=== PATIENT | female | born 1935 | race Caucasian/White ===

== ENCOUNTER → 2016-08-23 | Outpatient (CLI) | payer MEDICARE, OTHER ==
[~2016-08-23] MED LIST: ADVIL 200MG TA200 MG PO; CALTRATE-600 W600 MG PO; DYRENIUM 50MG C50 MG; EXCEDRIN PM 5001 CAP PO; KLOR-CON M2020 MEQ PO; LEVOXYL0.125 MG PO; LIPITOR20 MG PO; MAXZIDE 50 MG-71 TAB PO; MVI; NORVASC 10MG10 MG PO; OCUVITE1 TA1 PO; PAXIL 10MG10 MG PO; STRESS FORMULA1 T16 PO; SYNTHROID PO; TRIAMTERENE AND1 TA1 PO; occuvite
== END ==
LOC: MC.RAD 09:05
DX: Z12.31 Encounter for screening mammogram for malignant neoplasm of breast (principal); Z85.3 Personal history of malignant neoplasm of breast; Z80.3 Family history of malignant neoplasm of breast

== ENCOUNTER 2016-11-10 23:34 | Inpatient (IN) | payer MEDICARE, OTHER ==
[~2016-11-10] VITALS: Ht 167.6 cm; Wt 64.8 kg
[~2016-11-10 23:34] MED LIST changes: -DYRENIUM 50MG C50 MG; -KLOR-CON M2020 MEQ PO; -LEVOXYL0.125 MG PO; -MAXZIDE 50 MG-71 TAB PO; -NORVASC 10MG10 MG PO; -OCUVITE1 TA1 PO; -STRESS FORMULA1 T16 PO
[2016-11-11 00:38] LABS: HEMATOCRIT 47.4 % (37.0-47.0); HEMOGLOBIN 16.5 g/dl (12.5-16.0); MEAN CELL VOLUME 85 fl (80.0-100.0); MEAN CORPUSCULAR HEMOGLOBIN 30 pg (27.0-31.0); MEAN CORPUSCULAR HGB CONC 35 g/dl (33.0-37.0); MEAN PLATELET VOLUME 9.6 fl (7.4-10.4); PLATELET COUNT 272 K/mm3 (130-400); RED BLOOD COUNT 5.57 M/mm3 (4.10-5.30); REDCELL DISTRIBUTION WIDTH-CV 15.5 % (11.5-14.5); WHITE BLOOD COUNT 18.4 K/mm3 (4.8-10.8)
[2016-11-11 00:48] LABS: ADD PATHOLOGY DIFF REVIEW NO
[2016-11-11 00:51] LABS: BAND 61 % (0-10); NEUTROPHILS 34 % (42.0-75.2); TOTAL CELLS COUNTED 100
[2016-11-11 00:58] LABS: ADJUSTED CALCIUM 10.1 mg/dL (8.4-10.2); ALANINE AMINOTRANSFERASE 24 U/L (9-52); ALKALINE PHOSPHATASE 99 U/L (50-136); ANION GAP 19 mmol/L (7-16); BILIRUBIN,TOTAL 1.3 mg/dL (0.0-1.0); BLOOD UREA NITROGEN 23 mg/dL (7-17); CALCIUM 10.9 mg/dL (8.4-10.2); CARBON DIOXIDE 24 mmol/L (22-30); CHLORIDE 95 mmol/L (98-107); CREATININE, serum 1.07 mg/dL (0.52-1.25); GLUCOSE 177 mg/dL (74-106); LIPASE 78 U/L (23-300); POTASSIUM 3.4 mmol/L (3.4-5.0); SODIUM 138 mmol/L (137-145); TOTAL PROTEIN 8.6 gm/dL (6.4-8.2)
[2016-11-11 01:01] LABS: C-REACTIVE PROTEIN < 0.5 mg/dL (0.0-0.9)
[2016-11-11 01:07] LABS: TROPONIN-I < 0.012 ng/mL (0.000-0.034)
[2016-11-11] MEDS ORDERED: NORVASC 10MG10 MG PO (01:27)
[2016-11-11 01:59] LABS: PH 7 (5-8); SQUAMOUS EPITHELIAL 0-2 /hpf; URINE APPEARANCE Clear; URINE BACTERIA None Seen /hpf; URINE BILIRUBIN Negative (NEGATIVE); URINE BLOOD Negative (NEGATIVE); URINE COLOR Yellow; URINE GLUCOSE Negative (NEGATIVE); URINE KETONE Negative (NEGATIVE); URINE RBC 0-2 /hpf; URINE UROBILINOGEN Negative (NEGATIVE); URINE WBC 0-2 /hpf
[2016-11-11 02:49] VITALS: BP 125/65; PULSE 88; TEMP 97.8
[2016-11-11] MEDS ORDERED: DYRENIUM 50MG C50 MG (03:09)
[2016-11-11] MEDS ORDERED: KLOR-CON M2020 MEQ PO (03:11)
[2016-11-11] MEDS ORDERED: MAXZIDE 50 MG-71 TAB PO (03:13)
[2016-11-11 05:50] VITALS: BP 127/57; PULSE 85; TEMP 99.2
[2016-11-11 06:46] LABS: HEMATOCRIT 42.7 % (37.0-47.0); MEAN CELL VOLUME 88 fl (80.0-100.0); MEAN CORPUSCULAR HEMOGLOBIN 30 pg (27.0-31.0); MEAN CORPUSCULAR HGB CONC 34 g/dl (33.0-37.0); MEAN PLATELET VOLUME 9.5 fl (7.4-10.4); PLATELET COUNT 247 K/mm3 (130-400); RED BLOOD COUNT 4.87 M/mm3 (4.10-5.30); REDCELL DISTRIBUTION WIDTH-CV 15.8 % (11.5-14.5); WHITE BLOOD COUNT 14.3 K/mm3 (4.8-10.8)
[2016-11-11 06:47] LABS: ADD PATHOLOGY DIFF REVIEW NO; HEMOGLOBIN 14.4 g/dl (12.5-16.0)
[2016-11-11 07:17] LABS: BAND 32 % (0-10); NEUTROPHILS 62 % (42.0-75.2); TOTAL CELLS COUNTED 100
[2016-11-11 07:18] LABS: TOXIC GRANULATION PRESENT
[2016-11-11 09:06] LABS: PROTHROMBIN TIME 11.1 SECONDS (9.7-12.8)
[2016-11-11 09:34] VITALS: BP 133/65; PULSE 82; TEMP 99
[2016-11-11 14:07] VITALS: BP 116/61; PULSE 75; TEMP 97.9
[2016-11-11 18:05] VITALS: BP 133/63; PULSE 78
[2016-11-11 21:20] VITALS: BP 124/59; PULSE 77; TEMP 98.4
[2016-11-12 01:09] VITALS: BP 109/55; PULSE 71; TEMP 98.3
[2016-11-12 05:09] VITALS: BP 124/62; PULSE 75; TEMP 97.7
[2016-11-12 08:00] LABS: HEMATOCRIT 38.9 % (37.0-47.0); MEAN CELL VOLUME 92 fl (80.0-100.0); MEAN CORPUSCULAR HEMOGLOBIN 29 pg (27.0-31.0); MEAN CORPUSCULAR HGB CONC 32 g/dl (33.0-37.0); MEAN PLATELET VOLUME 10.5 fl (7.4-10.4); PLATELET COUNT 220 K/mm3 (130-400); RED BLOOD COUNT 4.22 M/mm3 (4.10-5.30); WHITE BLOOD COUNT 3.7 K/mm3 (4.8-10.8)
[2016-11-12 08:02] LABS: ADJUSTED CALCIUM 9.1 mg/dL (8.4-10.2); ALBUMIN 3.1 gm/dL (3.5-5.0); BILIRUBIN,TOTAL 0.8 mg/dL (0.0-1.0); CALCIUM 8.4 mg/dL (8.4-10.2); CREATININE, serum 0.86 mg/dL (0.52-1.25); POTASSIUM 3.2 mmol/L (3.4-5.0); TOTAL PROTEIN 5.9 gm/dL (6.4-8.2)
[2016-11-12 08:19] LABS: HEMOGLOBIN 12.4 g/dl (12.5-16.0)
[2016-11-12 08:20] LABS: ADD PATHOLOGY DIFF REVIEW NO
[2016-11-12 09:26] LABS: BAND 23 % (0-10); BASOPHIL 1 % (0-2); EOSINOPHIL 2 % (0-4); METAMYELOCYTE 1 % (0-0); NEUTROPHILS 30 % (42.0-75.2); PLATELET ESTIMATE NORMAL (NORMAL); TOTAL CELLS COUNTED 100; TOXIC GRANULATION PRESENT
[2016-11-12 10:51] VITALS: BP 97/81; PULSE 80; TEMP 98
[2016-11-12 14:16] VITALS: BP 136/65; PULSE 79; TEMP 97.8
[2016-11-12 18:15] VITALS: BP 142/65; PULSE 80; TEMP 98.6
[2016-11-12 21:18] VITALS: BP 138/66; PULSE 84; TEMP 98.9
[2016-11-13 06:25] VITALS: BP 141/62; PULSE 77; TEMP 98.6
[2016-11-13 07:25] LABS: BASO % 0.4 % (0.0-2.0); EOS # 0.1 (0.0-0.7); EOS % 2.5 % (0-4.0); GRAN # 3.4 (1.4-6.5); GRAN % 65.1 % (42.2-75.2); HEMATOCRIT 37.5 % (37.0-47.0); HEMOGLOBIN 12.5 g/dl (12.5-16.0); LYMPH % 19.6 % (20.0-51.0); MEAN CELL VOLUME 89 fl (80.0-100.0); MEAN CORPUSCULAR HEMOGLOBIN 30 pg (27.0-31.0); MEAN CORPUSCULAR HGB CONC 33 g/dl (33.0-37.0); MEAN PLATELET VOLUME 10.6 fl (7.4-10.4); MONO # 0.6 (0.1-0.6); MONO % 12.2 % (1.7-9.3); PLATELET COUNT 203 K/mm3 (130-400); RED BLOOD COUNT 4.21 M/mm3 (4.10-5.30); REDCELL DISTRIBUTION WIDTH-CV 15.3 % (11.5-14.5); WHITE BLOOD COUNT 5.3 K/mm3 (4.8-10.8)
[2016-11-13 07:28] LABS: CALCIUM 8.4 mg/dL (8.4-10.2); CREATININE, serum 0.73 mg/dL (0.52-1.25)
[2016-11-13 07:33] LABS: POTASSIUM 2.5 mmol/L (3.4-5.0)
[2016-11-13 09:49] VITALS: BP 128/66; PULSE 72; TEMP 98
[2016-11-13] MEDS ORDERED: MAXZIDE 50 MG-71 TAB PO (09:59)
[2016-11-13] MEDS ORDERED: LEVOXYL0.125 MG PO (09:59)
[2016-11-13] MEDS ORDERED: OCUVITE1 TA1 PO (10:01)
[2016-11-13] MEDS ORDERED: STRESS FORMULA1 T16 PO (10:02)
[2016-11-13 14:40] VITALS: BP 124/57; PULSE 80; TEMP 98
[2016-11-13 17:51] VITALS: BP 114/61; PULSE 66; TEMP 98
[2016-11-13 20:28] VITALS: BP 131/62; PULSE 66; TEMP 98
[2016-11-14 04:24] VITALS: BP 141/66; PULSE 73; TEMP 98.3
[2016-11-14 09:04] VITALS: BP 131/54; PULSE 66; TEMP 98.1
[2016-11-14 14:18] VITALS: BP 132/66; PULSE 65; TEMP 98.3
== END 2016-11-14 16:48 | disposition home or self-care (01) | DRG 389 ==
LOC: COL.ER 23:34 → SURG 11-11 02:17
PROVIDERS: Emergency Medicine; Surgery
DX: K56.5 Intestinal adhesions [bands] with obstruction (postinfection) (principal); R18.8 Other ascites; I10 Essential (primary) hypertension; Z85.3 Personal history of malignant neoplasm of breast; E87.6 Hypokalemia
CPT/HCPCS: J2270; J2405; J7030; Q9967

== ENCOUNTER 2017-04-14 15:31 | Outpatient (RCR) | payer MEDICARE, OTHER ==
[~2017-04-14 15:31] MED LIST changes: +DYRENIUM 50MG C50 MG; +KLOR-CON M2020 MEQ PO; +LEVOXYL0.125 MG PO; +MAXZIDE 50 MG-71 TAB PO; +NORVASC 10MG10 MG PO; +OCUVITE1 TA1 PO; +STRESS FORMULA1 T16 PO
== END 2017-07-13 | disposition home or self-care (01) ==
LOC: WSOT
DX: Z01.89 Encounter for other specified special examinations (principal)

== ENCOUNTER → 2017-09-01 | Outpatient (CLI) | payer MEDICARE, OTHER | LOC: MC.RAD 08:46 | DX: Z12.31 Encounter for screening mammogram for malignant neoplasm of breast (principal); Z98.890 Other specified postprocedural states ==

== ENCOUNTER → 2018-09-19 | Outpatient (CLI) | payer MEDICARE, OTHER | LOC: MC.RAD 09-18 08:45 | DX: Z12.31 Encounter for screening mammogram for malignant neoplasm of breast (principal); Z98.890 Other specified postprocedural states; Z92.3 Personal history of irradiation ==

== ENCOUNTER → 2019-06-27 | Outpatient (CLI) | payer MEDICARE, OTHER ==
[~2019-06-27] VITALS: Ht 167.6 cm; Wt 61.5 kg
[~2019-06-27] MED LIST changes: +BENADRYL25 M2 PO; +MOTRIN 200200 MG/TAB PO
[2019-06-27 10:29] VITALS: BP 158/90; PULSE 71
[2019-06-27 11:45] VITALS: BP 162/87; PULSE 76
--- NOTE | 2019-06-27 12:00 | NUR ---
PT REPORTS TINGLING IN THE LEFT FOOT AND SLIGHTLY IN THE RIGHT.
--- NOTE | 2019-06-27 12:13 | NUR ---
TINGLING IS GONE IN THE RIGHT AND IS RESOLVING IN THE LEFT
--- NOTE | 2019-06-27 12:28 | NUR ---
PT WAS TAKEN DOWN IN WHEELCHAIR TO FRONT LOBBY. LEFT TO GET THE POV.
== END ==
LOC: COL.RAD 09:30
DX: M51.26 Other intervertebral disc displacement, lumbar region (principal)
CPT/HCPCS: J3301

== ENCOUNTER → 2019-11-12 | Outpatient (CLI) | payer MEDICARE, OTHER | LOC: MC.RAD 08:21 | DX: Z12.31 Encounter for screening mammogram for malignant neoplasm of breast (principal) ==

== ENCOUNTER → 2020-11-17 | Outpatient (CLI) | payer MEDICARE, OTHER | LOC: MC.RAD 09:14 | DX: Z12.31 Encounter for screening mammogram for malignant neoplasm of breast (principal); Z85.3 Personal history of malignant neoplasm of breast ==

== ENCOUNTER → 2021-11-23 | Outpatient (CLI) | payer MEDICARE, OTHER | LOC: MC.RAD 09:35 | DX: Z12.31 Encounter for screening mammogram for malignant neoplasm of breast (principal) ==